=== PATIENT | male | born 1955 | race Caucasian/White ===

== ENCOUNTER → 2023-08-17 12:01 | Outpatient (REF) | payer MEDICARE, OTHER, SELFPAY ==
--- NOTE | 2023-08-23 12:28 | OID.L.PAT ---
Pulmonary Nodule Pat Letter
- -
08/23/23
NETTE GUARDADO
[address] [facility]
[place] [address]
Flakita PERDUE,
A pulmonary nodule was seen on an imaging study done by [facility]. This was reviewed by the [facility] Pulmonary Nodule Advisory Board and the following recommendation was made:
Recommendation: CT of the Chest in 3-6 months
If you have any questions, please do not hesitate to contact your primary care physician. If you are in need of a Physician, you can go to [email or web address] and click on 'Find a Provider'. Type 'Family Medicine' in the search.
Oncology Nurse Navigator
[facility]
[phone]
--- NOTE | 2023-08-23 12:30 | OID.L.REC ---
Pulmonary Nodule Follow Up
- Recommendation
08/23/23
Pulmonary Nodule Review Recommendations
Your patient, NETTE GUARDADO, had a pulmonary nodule seen on an imaging study done 08/17/2023 in the [facility] Radiology Department.
This was reviewed by the [facility] Pulmonary Nodule Advisory Board and the following recommendation was made:
Recommendation: CT of the Chest in 3-6 months
If you have any questions please do not hesitate to contact us.
Sincerely,
Oncology Nurse Navigator
[facility]
[phone]
== END ==
LOC: HWRAD 12:01
PROVIDERS: ATTENDING PHYSICIAN Family Medicine
DX: E78.00 Pure hypercholesterolemia, unspecified (principal); Z82.49 Family history of ischemic heart disease and other diseases of the circulatory system
CPT/HCPCS: 75571

== ENCOUNTER → 2024-03-17 14:25 | Outpatient (REF) | payer MEDICARE, OTHER, SELFPAY | LOC: HWRAD 14:25 | PROVIDERS: ATTENDING PHYSICIAN Family Medicine | DX: R91.8 Other nonspecific abnormal finding of lung field (principal) | CPT/HCPCS: 71260; Q9967 ==